=== PATIENT | male | born 1995 | race Caucasian/White ===

== ENCOUNTER 2023-10-04 11:07 | Outpatient (CLI) | payer OTHER, SELFPAY ==
[2023-10-04 17:11] LABS: Chlamydia DNA Amplified* NOT DETECTED (No Detected); GC DNA Amplified* NOT DETECTED (No Detected)
== END 2023-10-04 11:08 | disposition home or self-care (01) ==
PROVIDERS: PCP Physician Assistant; Visit Provider Physician Assistant
DX: R10.30 Lower abdominal pain, unspecified (principal); Z11.3 Encounter for screening for infections with a predominantly sexual mode of transmission
CPT/HCPCS: 87491; 87591

== ENCOUNTER 2023-11-08 14:14 | Outpatient (CLI) | payer OTHER, SELFPAY | END 2023-11-08 14:15 | disposition home or self-care (01) | LOC: NFLDUCREF 14:16 | PROVIDERS: Visit Provider Nurse Practitioner Family | DX: S61.251A Open bite of left index finger without damage to nail, initial encounter (principal); W50.3XXA Accidental bite by another person, initial encounter | CPT/HCPCS: 87070; 87186 ==